=== PATIENT | male | born 1965 | race Caucasian/White ===

== ENCOUNTER 2017-12-31 16:36 | Emergency (ER) | payer OTHER ==
[~2017-12-31] VITALS: Ht 170.2 cm; Wt 98.2 kg
[~2017-12-31 16:36] MED LIST: ASPIR 8181 M1 PO; BRILINTA90 MG PO; CHERATUSSIN AC473 ML PO; COREG6.25 M1 PO; ESCITALOPRAM OX10 MG PO; HYDROCODON-ACE1 EAC7 PO; ISOSORBIDE MONO30 MG PO; LIPITOR20 MG PO; LISINOPRIL10 MG PO; LISINOPRIL20 MG PO; NAPROSYN500 MG PO; NICODERM CQ1 EAC2 TD; NITROSTAT0.4 MG SL; OMEPRAZOLE40 M1 PO; ROPINIROLE HCL1 MG PO; SINEMET 25-1001 EACH PO; SPIRONOLACTONE25 MG PO; ZETIA10 MG PO
[2017-12-31] MEDS ORDERED: IMDUR60 MG PO (16:45)
[2017-12-31] MEDS ORDERED: ROSUVASTATIN CA40 MG PO (16:45)
[2017-12-31] MEDS ORDERED: PANTOPRAZOLE SO40 MG PO (16:46)
[2017-12-31] MEDS ORDERED: AMITRIPTYLINE100 MG PO (16:46)
[2017-12-31] MEDS ORDERED: GABAPENTIN300 MG PO (18:35)
[2017-12-31] MEDS ORDERED: MEDROL DOSEPAK4 MG PO (18:35)
[2017-12-31] MEDS ORDERED: FLEXERIL10 MG PO (18:35)
[2017-12-31] MEDS ORDERED: PERCOCET 5/31 TABLET PO (18:46)
[2017-12-31 19:09] VITALS: BP 128/70
== END 2017-12-31 19:10 | disposition home or self-care (01) ==
LOC: EME 16:36
DX: M54.5 Low back pain (principal); G89.29 Other chronic pain; M54.16 Radiculopathy, lumbar region; I10 Essential (primary) hypertension; E78.5 Hyperlipidemia, unspecified; I25.2 Old myocardial infarction; I25.10 Atherosclerotic heart disease of native coronary artery without angina pectoris; Z95.5 Presence of coronary angioplasty implant and graft; Z79.82 Long term (current) use of aspirin; F17.200 Nicotine dependence, unspecified, uncomplicated
CPT/HCPCS: 99281; 99283; J3010